=== PATIENT | male | born 1975 ===

== ENCOUNTER 2019-11-08 13:33 | Outpatient (CLI) | payer BC, SELFPAY ==
--- NOTE | 2019-11-08 13:41 | XRR_ITS ---
PROCEDURE INFORMATION: Exam: XR Abdomen, 2 Views Exam date and time: 11/08/2019 2:18 PM Age: 44 years old Clinical indication: Abdominal pain; Generalized; Additional info: Constipation vomiting TECHNIQUE: Imaging protocol: XR of the abdomen. Views: 2 Views. COMPARISON: No relevant prior studies available. FINDINGS: Gastrointestinal tract: Nonspecific bowel gas pattern. There is a small volume of scattered colonic fecal stasis Intraperitoneal space: Normal. No free air. Bones/joints: Metallic sternotomy wires are in place. Chest: Negative for acute abnormality XR/XR acute abdomen series [id number] IMPRESSION: No acute cardiac or pulmonary disease Negative for acute GI abnormality
== END 2019-11-08 13:34 | disposition home or self-care (01) ==
LOC: RAD 13:37
PROVIDERS: PCP Internal Medicine; Visit Provider Nurse Practitioner Family
DX: K59.00 Constipation, unspecified (principal); R11.10 Vomiting, unspecified; R10.84 Generalized abdominal pain
CPT/HCPCS: 74022